=== PATIENT | male | born 1955 | race Caucasian/White ===

== ENCOUNTER 2019-08-29 14:07 | Emergency (ER) | payer MEDICAID ==
[~2019-08-29] VITALS: Ht 170.2 cm; Wt 77.1 kg
[2019-08-29] MEDS ORDERED: IBUP600 PO (15:38)
[2019-08-29] MEDS ORDERED: Norco 5-325 Ta1 EACH PO (15:38)
[2019-08-29] MEDS ORDERED: CYCL10 PO (15:38)
== END 2019-08-29 15:46 | disposition home or self-care (01) ==
LOC: ER 14:07
DX: M54.41 Lumbago with sciatica, right side (principal); F17.200 Nicotine dependence, unspecified, uncomplicated
CPT/HCPCS: 72100; 99283-25; A9270-GY

== ENCOUNTER 2021-01-23 12:13 | Day surgery (SDC) | payer OTHER ==
[~2021-01-23] VITALS: Ht 170.2 cm; Wt 80.4 kg
[~2021-01-23 12:13] MED LIST: CYCL10 PO; IBUP600 PO; IBUP800 PO; Norco 5-325 Ta1 EACH PO
--- NOTE | 2021-01-23 14:07 | NUR ---
01/23/21 1407 Leeann Bueno 11ML NACL INJECTION USED FOR POLYP REMOVALS.
[2021-05-20] MEDS ORDERED: Vancomycin1 GM/2501 IV (12:10)
[2021-05-20] MEDS ORDERED: SULTRIDS PO (12:12)
[2021-05-20] MEDS ORDERED: HYDR1TAB94 PO (12:12)
== END 2021-01-23 14:37 | disposition home or self-care (01) ==
LOC: ORSCSDS 12:13
PROVIDERS: Internal Medicine Gastroenterology
PROC: 0DBC8ZX Excision of Ileocecal Valve, Via Natural or Artificial Opening Endoscopic, Diagnostic (ICD-10-PCS; principal; 2021-01-23 14:30)
PROC: 0DBN8ZX Excision of Sigmoid Colon, Via Natural or Artificial Opening Endoscopic, Diagnostic (ICD-10-PCS; principal; 2021-01-23 14:30)
PROC: 0DBL8ZX Excision of Transverse Colon, Via Natural or Artificial Opening Endoscopic, Diagnostic (ICD-10-PCS; principal; 2021-01-23 14:30)
PROC: 0DBP8ZX Excision of Rectum, Via Natural or Artificial Opening Endoscopic, Diagnostic (ICD-10-PCS; principal; 2021-01-23 14:30)
DX: Z12.11 Encounter for screening for malignant neoplasm of colon (principal); D12.0 Benign neoplasm of cecum; D12.3 Benign neoplasm of transverse colon; D12.5 Benign neoplasm of sigmoid colon; K62.1 Rectal polyp; K57.30 Diverticulosis of large intestine without perforation or abscess without bleeding; K64.8 Other hemorrhoids
CPT/HCPCS: 88305; J2704; J7120

== ENCOUNTER 2021-04-28 23:00 | Emergency (ER) | payer OTHER ==
[~2021-04-28] VITALS: Ht 170.2 cm; Wt 81.7 kg
[2021-04-29 01:25] LABS: BASOPHILS ABSOLUTE AUTO 0.06 K/mm3 (0.00-0.23); BASOPHILS PERCENT AUTO 1 % (0-2); EOSINOPHILS ABSOLUTE AUTO 0.11 K/mm3 (0.00-0.68); EOSINOPHILS PERCENT AUTO 1 % (0-6); Hematocrit 40.6 % (37.0-53.0); Hemoglobin 14.2 g/dL (13.5-17.5); IMMATURE GRAN ABSOLUTE AUTO 0.06 K/mm3 (0.00-0.10); IMMATURE GRAN PERCENT AUTO 1 % (0-1); LYMPHOCYTES ABSOLUTE AUTO 1.29 K/mm3 (0.84-5.20); LYMPHOCYTES PERCENT AUTO 10 % (21-46); MONOCYTES PERCENT AUTO 8 % (4-13); Mean Corpuscular HGB 31.9 pg (26.0-34.0); Mean Corpuscular Volume 91 fL (80-100); NEUTROPHILS ABSOLUTE AUTO 10.39 K/mm3 (1.96-9.15); NEUTROPHILS PERCENT AUTO 80 % (41-73); Platelet Count 317 K/mm3 (150-400); RDW Coefficient Variation 13.9 % (11.7-14.2); RDW Standard Deviation 46.9 fL (35.1-46.3); Red Blood Cell Count 4.45 M/mm3 (4.30-5.90); White Blood Cell Count 12.91 K/mm3 (4.00-11.30)
[2021-04-29 01:37] LABS: Alanine Aminotransfer (ALT/SGP 25 U/L (12-78); Albumin, Blood 3.6 g/dL (3.4-5.0); Albumin/Globulin Ratio 0.9 (0.8-1.8); Alk Phos 122 U/L (50-136); Anion Gap 7 mmol/L (6-16); Aspartate Aminotrans (AST/SGOT 16 U/L (12-37); Bilirubin, Total 0.4 mg/dL (0.1-1.0); Blood Urea Nitrogen 16 mg/dL (8-24); Bun/Creatinine Ratio 16.6 (12.0-20.0); CO2, Blood 24 mmol/L (21-32); Calcium, Blood 8.7 mg/dL (8.5-10.1); Chloride, Blood 108 mmol/L (98-108); Creatinine, Blood 0.96 mg/dL (0.60-1.20); Globulin, Blood 3.9 g/dL (2.2-4.0); Glomerular Filtration Rate >60 (60-); Glucose, Blood 154 mg/dL (70-99); Potassium, Blood 3.5 mmol/L (3.5-5.5); Sodium, Blood 139 mmol/L (136-145); Total Protein, Blood 7.5 g/dL (6.4-8.2)
[2021-05-20] MEDS ORDERED: Vancomycin1 GM/2501 IV (12:10)
[2021-05-20] MEDS ORDERED: SULTRIDS PO (12:12)
[2021-05-20] MEDS ORDERED: HYDR1TAB94 PO (12:12)
== END 2021-04-29 04:24 | disposition home or self-care (01) ==
LOC: ER 23:00
PROVIDERS: Emergency Medicine
DX: G89.18 Other acute postprocedural pain (principal); Z87.891 Personal history of nicotine dependence
CPT/HCPCS: 36415; 73201; 80053; 85025; 86140; 96374; 96375; 99283-25; J1170; J1885; J2405; J3010; Q9967

== ENCOUNTER 2021-05-06 08:22 | Emergency (ER) | payer OTHER ==
[~2021-05-06] VITALS: Ht 170.2 cm; Wt 79.4 kg
[2021-05-06] MEDS ORDERED: IBUP600 PO (08:33)
[2021-05-06] MEDS ORDERED: CEFP200 PO (08:33)
[2021-05-20] MEDS ORDERED: Vancomycin1 GM/2501 IV (12:10)
[2021-05-20] MEDS ORDERED: SULTRIDS PO (12:12)
[2021-05-20] MEDS ORDERED: HYDR1TAB94 PO (12:12)
== END 2021-05-06 09:02 | disposition home or self-care (01) ==
LOC: ER 08:22
DX: G89.18 Other acute postprocedural pain (principal); M79.642 Pain in left hand; Z87.891 Personal history of nicotine dependence
CPT/HCPCS: 99283-25

== ENCOUNTER 2021-05-06 16:31 | Inpatient (IN) | payer OTHER ==
[~2021-05-06] VITALS: Ht 170.2 cm; Wt 74.9 kg
[~2021-05-06 16:31] MED LIST changes: +CEFP200 PO
[2021-05-06 17:51] LABS: BASOPHILS ABSOLUTE AUTO 0.02 K/mm3 (0.00-0.23); BASOPHILS PERCENT AUTO 0 % (0-2); EOSINOPHILS ABSOLUTE AUTO 0.11 K/mm3 (0.00-0.68); EOSINOPHILS PERCENT AUTO 1 % (0-6); Hematocrit 37.9 % (37.0-53.0); Hemoglobin 13.5 g/dL (13.5-17.5); IMMATURE GRAN ABSOLUTE AUTO 0.11 K/mm3 (0.00-0.10); IMMATURE GRAN PERCENT AUTO 1 % (0-1); LYMPHOCYTES ABSOLUTE AUTO 2.94 K/mm3 (0.84-5.20); LYMPHOCYTES PERCENT AUTO 26 % (21-46); MONOCYTES ABSOLUTE AUTO 1.06 K/mm3 (0.16-1.47); MONOCYTES PERCENT AUTO 9 % (4-13); Mean Corpuscular HGB 32.1 pg (26.0-34.0); Mean Corpuscular HGB Conc 35.6 g/dL (31.5-36.5); Mean Corpuscular Volume 90 fL (80-100); Mean Platelet Volume 9.6 fL (9.1-12.4); NEUTROPHILS ABSOLUTE AUTO 6.98 K/mm3 (1.96-9.15); NEUTROPHILS PERCENT AUTO 62 % (41-73); Platelet Count 416 K/mm3 (150-400); RDW Coefficient Variation 13.6 % (11.7-14.2); RDW Standard Deviation 45.3 fL (35.1-46.3); White Blood Cell Count 11.22 K/mm3 (4.00-11.30)
[2021-05-06 18:06] LABS: Alanine Aminotransfer (ALT/SGP 53 U/L (12-78); Albumin, Blood 2.9 g/dL (3.4-5.0); Albumin/Globulin Ratio 0.7 (0.8-1.8); Alk Phos 108 U/L (50-136); Anion Gap 4 mmol/L (6-16); Aspartate Aminotrans (AST/SGOT 26 U/L (12-37); Bilirubin, Total 0.2 mg/dL (0.1-1.0); Blood Urea Nitrogen 20 mg/dL (8-24); Bun/Creatinine Ratio 24.8 (12.0-20.0); CO2, Blood 30 mmol/L (21-32); Calcium, Blood 8.2 mg/dL (8.5-10.1); Chloride, Blood 105 mmol/L (98-108); Creatinine, Blood 0.81 mg/dL (0.60-1.20); Globulin, Blood 3.9 g/dL (2.2-4.0); Glomerular Filtration Rate >60 (60-); Glucose, Blood 96 mg/dL (70-99); Potassium, Blood 3.3 mmol/L (3.5-5.5); Sodium, Blood 139 mmol/L (136-145); Total Protein, Blood 6.8 g/dL (6.4-8.2)
[2021-05-06 18:35] LABS: SARS-Cov-2 (COVID-19) PCR, MMC NEGATIVE (NEGATIVE)
--- NOTE | 2021-05-06 19:25 | NUR ---
DIRECT ADMIT: PT TO UNIT AT ABOUT 1650. VSS, A/O. L HAND IS SWOLLEN AND WRAPED IN DEEPA. PT CAN WIGGLE FINGERS, REPORTS NUMBNESS. CAP REFILL LESS THAN 3 SEC. PT REPORTS PAIN MANAGABLE AT THIS TIME. ARM ELEVATED ON PILLOWS. PRE OP ORDERS FAXED TO PHARMACY AND ORDERS ENTERED IN TO COMPUTER. IV STARTED AND LABS DRAWN. PT GIVEN GOWN AND EDUCATED ON PRE OP PROCESS, ORIENTED TO ROOM, CALL LIGHT. PT NPO. DR. LIZAMA IN ROOM AT ABOUT 1720. COVID TEST SENT AT ABOUT 1730. PT AT BEDSIDE. WILL CTM
--- NOTE | 2021-05-06 19:30 | NUR ---
SURGERY: PT TO OR AT ABOUT 1845, REPORT PASSED TO ALISA FOWLER RN.
--- NOTE | 2021-05-06 19:31 | NUR ---
05/06/211930 Murphy Rod PT ON SCHEDULED ZOSYN AND RECIEVED PRIOR TO ARRIVAL TO OR.
--- NOTE | 2021-05-06 22:54 | NUR ---
ICU RECOVERY PT ARRIVED TO ICU AT 2119. PT ALERT/ORIENTED BUT DROWSY AND C/O PAIN TO LT HAND. PRN FENTANYL AVAILABLE AND GIVEN SEVERAL TIMES, SEE EMAR. SPO2 >93% ON RA. HR 60-80'S. SBP 170-180'S. PT ALBE TO MINMALLY MOVE THUMB AND FIRST TWO DIGITS OF LT HAND AND HAD SENSATION TO ALL 5 FINGERS. TEMP 97.2. REPORT CALLED TO SURGICAL NURSE MALCOLM AT 2209 FOLLOWED BY TRANSPORT TO SUGICAL FLOOR.
--- NOTE | 2021-05-07 05:59 | NUR ---
SHIFT SUMMARY POD1 L WRIST I&D, A/O X4 THOUGH PT WAS GROGGY T/O MOST OF THE SHIFT AFTER COMING BACK FROM ICU RECOVERY, TOLERATING PO, VOIDING, PASSING FLATUS. C/O SEVERE PAIN PRIOR TO NEXT AVAILABLE PAIN MEDICATION DOSE, PT REPORTS THAT THE MEDICATION HE IS RECEIVING IS BARELY TOUCHING HIS PAIN EVEN THOUGH HE IS FALLING ASLEEP AND SNORING WITHIN A FEW MINUTES OF MEDICATION ADMINISTRATION. LAST 2 DOSES OF PAIN MEDICATIONS WERE GIVEN A LITTLE EARLY FOR PATIENT COMFORT AND A CALL WAS PLACED TO THE SURGEON TO SEE ABOUT ADJUSTING THE CURRENT PAIN MEDICATION ORDER, WAITING CALL BACK AT THIS TIME. JUST PRIOR TO LAST PAIN MEDICATION ADMINISTRATION PATIENT WAS CALLING OUT AND YELLING AT STAFF DESPITE TELLING HIM WE WERE WORKING ON GETTING SOMETHING TO BETTER MANAGE HIS PAIN. PATIENT CURRENTLY SLEEPING AND SNORING AND IS ABLE TO WAKE TO VERBAL STIMULI AFTER FALLING ASLEEP AFTER RECEIVING PAIN MEDICATION. NO ACUTE EVENTS THIS SHIFT, CALL LIGHT IN REACH, WILL CTM AND REPORT TO DAY RN
--- NOTE | 2021-05-07 09:59 | NUR ---
PT CALLED FOR PAIN MEDICATION AT 0735, MEDICATION GIVEN AT 0740. OFFERED PT ICE FOR L HAND AND AN EXTRA PILLOW TO ELEVATE L ARM, PT REFUSED. SHORTLY AFTER RECEIVING 1 MG DILAUDID, PT WAS ASLEEP, SP02 94% ON RA, RR 20. WILL CTM.
[2021-05-07 17:13] LABS: BASOPHILS ABSOLUTE AUTO 0.02 K/mm3 (0.00-0.23); BASOPHILS PERCENT AUTO 0 % (0-2); EOSINOPHILS ABSOLUTE AUTO 0.16 K/mm3 (0.00-0.68); EOSINOPHILS PERCENT AUTO 1 % (0-6); Hematocrit 40.9 % (37.0-53.0); Hemoglobin 14.3 g/dL (13.5-17.5); IMMATURE GRAN PERCENT AUTO 1 % (0-1); LYMPHOCYTES ABSOLUTE AUTO 2.13 K/mm3 (0.84-5.20); LYMPHOCYTES PERCENT AUTO 18 % (21-46); MONOCYTES ABSOLUTE AUTO 1.06 K/mm3 (0.16-1.47); MONOCYTES PERCENT AUTO 9 % (4-13); Mean Corpuscular HGB 32.1 pg (26.0-34.0); Mean Corpuscular Volume 92 fL (80-100); Mean Platelet Volume 9.6 fL (9.1-12.4); NEUTROPHILS PERCENT AUTO 72 % (41-73); Platelet Count 368 K/mm3 (150-400); RDW Coefficient Variation 13.8 % (11.7-14.2); RDW Standard Deviation 46.9 fL (35.1-46.3); Red Blood Cell Count 4.45 M/mm3 (4.30-5.90); White Blood Cell Count 12.17 K/mm3 (4.00-11.30)
[2021-05-07 17:35] LABS: Alanine Aminotransfer (ALT/SGP 37 U/L (12-78); Albumin, Blood 2.6 g/dL (3.4-5.0); Albumin/Globulin Ratio 0.6 (0.8-1.8); Alk Phos 104 U/L (50-136); Anion Gap 6 mmol/L (6-16); Aspartate Aminotrans (AST/SGOT 16 U/L (12-37); Bilirubin, Total 0.5 mg/dL (0.1-1.0); Blood Urea Nitrogen 15 mg/dL (8-24); Bun/Creatinine Ratio 16.6 (12.0-20.0); CO2, Blood 29 mmol/L (21-32); Calcium, Blood 8.3 mg/dL (8.5-10.1); Chloride, Blood 101 mmol/L (98-108); Globulin, Blood 4.1 g/dL (2.2-4.0); Glomerular Filtration Rate >60 (60-); Glucose, Blood 112 mg/dL (70-99); Potassium, Blood 3.6 mmol/L (3.5-5.5); Sodium, Blood 136 mmol/L (136-145); Total Protein, Blood 6.7 g/dL (6.4-8.2)
--- NOTE | 2021-05-07 18:30 | NUR ---
SUMMARY: PT IS POD1 I&D L WRIST. DROWSY AND OREINTED TODAY. PT SLEPT OFF AND ON ALL DAY, EASILY AWAKENED. PT REPORTS PAIN WELL MANAGED TONIGHT WITH 2 ROXICODONE. CSM INTACT TO L ARM, ARM ELEVATED TODAY, DRESSING WNL. PT DENIED NEED FOR ICE PACK. PT UP WITH SBA TO VOID SEVERAL TIMES AND SAT IN RECLINER. NOTED HTN TONIGHT PT ASYPTOMATIC, AND DR. LIZAMA MADE AWARE, SEE NEW ORDERS FOR HOSPITALIST CONSULT, DR. MOLINA NOTIFIED. LOSARTIN GIVEN, AND PAIN MEDICATION, WILL CTM. PT SLEEPING AND COMFORTABLE AT THIS TIME. CONSULT FOR DR. GRAVES ALSO CALLED TONIGHT AND MESSAGE LEFT. WILL CTM AND REPORT TO NOC RN.
--- NOTE | 2021-05-08 04:17 | NUR ---
SHIFT SUMMARY NO ACUTE CHANGES THIS SHIFT. DRESSING TO L HAND REMAINS CDI. FINGERS WITH MINIMAL SWELLING. PT ABLE TO SLOWLY WIGGLE FINGERS. REPORTS BASELINE N/T. CAP REFILL <3. ELEVATED ON PILLOWS. L HAND NWB. PT INDEP TO RESTROOM. 2 PAIN PILLS PER ORDERS FOR PAIN. PT HAS RESTED WELL T/O SHIFT. CALL LIGHT WITHIN REACH.
[2021-05-08 08:54] LABS: Anion Gap 4 mmol/L (6-16); Blood Urea Nitrogen 15 mg/dL (8-24); Bun/Creatinine Ratio 17.4 (12.0-20.0); CO2, Blood 30 mmol/L (21-32); Calcium, Blood 8.2 mg/dL (8.5-10.1); Chloride, Blood 102 mmol/L (98-108); Creatinine, Blood 0.86 mg/dL (0.60-1.20); Glomerular Filtration Rate >60 (60-); Glucose, Blood 107 mg/dL (70-99); Potassium, Blood 4.1 mmol/L (3.5-5.5); Sodium, Blood 136 mmol/L (136-145); Vancomycin, Trough 6.3 ug/mL (5.0-10.0)
--- NOTE | 2021-05-08 12:35 | NUR ---
[facility]
--- NOTE | 2021-05-08 13:38 | NUR ---
05/08/21 1338 Tonie Bonds TOURNIQUET INFLATED BY ANESTHESIA AT [id number] AND DEFLATED AT 1331 250 MMHG. 18 " TOURNIQUET PADDED.
--- NOTE | 2021-05-08 14:55 | NUR ---
POST OP PT ARRIVES VIA GOURNEY & SBA STANDS & TRANSFERS TO HOSPITAL BED. L HAND IN DEEPA WRAP W/ GAUZE UNDERNEATH. VSS. L HAND ELEVATED ON 2 PILLOWS. CAP REFIL WNL. PT STATES THROBBING IS GONE. CLEAR LQS GIVEN. WILL ADVANBCE DIET TOLERATED.
[2021-05-08 16:47] LABS: BASOPHILS ABSOLUTE AUTO 0.03 K/mm3 (0.00-0.23); BASOPHILS PERCENT AUTO 0 % (0-2); EOSINOPHILS ABSOLUTE AUTO 0.04 K/mm3 (0.00-0.68); EOSINOPHILS PERCENT AUTO 0 % (0-6); Hematocrit 43.9 % (37.0-53.0); IMMATURE GRAN ABSOLUTE AUTO 0.14 K/mm3 (0.00-0.10); IMMATURE GRAN PERCENT AUTO 1 % (0-1); LYMPHOCYTES ABSOLUTE AUTO 0.79 K/mm3 (0.84-5.20); LYMPHOCYTES PERCENT AUTO 4 % (21-46); MONOCYTES ABSOLUTE AUTO 0.19 K/mm3 (0.16-1.47); MONOCYTES PERCENT AUTO 1 % (4-13); Mean Corpuscular HGB 32.1 pg (26.0-34.0); Mean Corpuscular HGB Conc 34.2 g/dL (31.5-36.5); Mean Corpuscular Volume 94 fL (80-100); Mean Platelet Volume 9.7 fL (9.1-12.4); NEUTROPHILS ABSOLUTE AUTO 16.91 K/mm3 (1.96-9.15); NEUTROPHILS PERCENT AUTO 93 % (41-73); Platelet Count 363 K/mm3 (150-400); RDW Coefficient Variation 13.7 % (11.7-14.2); RDW Standard Deviation 47.3 fL (35.1-46.3); Red Blood Cell Count 4.67 M/mm3 (4.30-5.90)
[2021-05-08 17:13] LABS: Alanine Aminotransfer (ALT/SGP 31 U/L (12-78); Albumin, Blood 2.6 g/dL (3.4-5.0); Albumin/Globulin Ratio 0.6 (0.8-1.8); Alk Phos 98 U/L (50-136); Anion Gap 6 mmol/L (6-16); Aspartate Aminotrans (AST/SGOT 15 U/L (12-37); Bilirubin, Total 0.6 mg/dL (0.1-1.0); Blood Urea Nitrogen 15 mg/dL (8-24); Bun/Creatinine Ratio 16.5 (12.0-20.0); CO2, Blood 30 mmol/L (21-32); Calcium, Blood 8.4 mg/dL (8.5-10.1); Chloride, Blood 98 mmol/L (98-108); Creatinine, Blood 0.91 mg/dL (0.60-1.20); Globulin, Blood 4.3 g/dL (2.2-4.0); Glomerular Filtration Rate >60 (60-); Glucose, Blood 213 mg/dL (70-99); Potassium, Blood 4.1 mmol/L (3.5-5.5); Sodium, Blood 134 mmol/L (136-145); Total Protein, Blood 6.9 g/dL (6.4-8.2)
--- NOTE | 2021-05-08 19:00 | NUR ---
RECEIVED REPORT AND ASSUMED CARE OF PT. HE IS SITTING UP IN BED WITH HIS LEFT ARM ELEVATED. HE REPORTS THAT HIS PAIN IS STARTING TO RAMP UP, DISCUSSED PAIN MANAGEMENT AND NEXT SCHEDULED DOSE. WILL MEDICATE PER MAR. HE IS RECEPTIVE TO COLD THERAPY.
--- NOTE | 2021-05-08 20:45 | NUR ---
PT REQUESTS TO BE AWOKEN FOR HIS NEXT DOSE OF PAIN MEDICATION, BUT WANTS TO BE ALLOWED TO SLEEP AFTER THAT. HE STATES HE WILL ASK FOR THE PAIN MEDICATION WHEN HE IS READY FOR IT.
[2021-05-09 04:46] LABS: BASOPHILS ABSOLUTE AUTO 0.03 K/mm3 (0.00-0.23); BASOPHILS PERCENT AUTO 0 % (0-2); EOSINOPHILS ABSOLUTE AUTO 0.01 K/mm3 (0.00-0.68); EOSINOPHILS PERCENT AUTO 0 % (0-6); Hematocrit 40.1 % (37.0-53.0); IMMATURE GRAN ABSOLUTE AUTO 0.11 K/mm3 (0.00-0.10); IMMATURE GRAN PERCENT AUTO 1 % (0-1); LYMPHOCYTES ABSOLUTE AUTO 1.33 K/mm3 (0.84-5.20); LYMPHOCYTES PERCENT AUTO 8 % (21-46); MONOCYTES ABSOLUTE AUTO 0.92 K/mm3 (0.16-1.47); MONOCYTES PERCENT AUTO 6 % (4-13); Mean Corpuscular HGB Conc 34.9 g/dL (31.5-36.5); Mean Corpuscular Volume 92 fL (80-100); Mean Platelet Volume 9.9 fL (9.1-12.4); NEUTROPHILS ABSOLUTE AUTO 13.48 K/mm3 (1.96-9.15); NEUTROPHILS PERCENT AUTO 85 % (41-73); Platelet Count 341 K/mm3 (150-400); RDW Coefficient Variation 13.2 % (11.7-14.2); RDW Standard Deviation 44.8 fL (35.1-46.3); Red Blood Cell Count 4.37 M/mm3 (4.30-5.90); White Blood Cell Count 15.88 K/mm3 (4.00-11.30)
[2021-05-09 05:03] LABS: Albumin, Blood 2.3 g/dL (3.4-5.0); Anion Gap 5 mmol/L (6-16); Blood Urea Nitrogen 25 mg/dL (8-24); Bun/Creatinine Ratio 27.4 (12.0-20.0); CO2, Blood 27 mmol/L (21-32); Chloride, Blood 103 mmol/L (98-108); Creatinine, Blood 0.91 mg/dL (0.60-1.20); Glomerular Filtration Rate >60 (60-); Glucose, Blood 128 mg/dL (70-99); Potassium, Blood 4.4 mmol/L (3.5-5.5); Sodium, Blood 135 mmol/L (136-145)
--- NOTE | 2021-05-09 05:44 | NUR ---
SHIFT SUMMARY: KENAN IS A&OX4. VSS, NO ACUTE EVENTS OVERNIGHT. DEEPA WRAP OVER GAUZE TO LUE C/D&I. HE IS TOLERATING PO INTAKE WELL, IV PATENT, ONE PERSON ASSIST TO THE BATHROOM FOR LINE/CORD MANAGEMENT. HE HAS NOT EXHIBITED ANY SIGNS/SYMPTOMS OF WITHDRAWAL THIS SHIFT, USES THE CALL LIGHT APPROPRIATELY. HE IS LYING IN BED WITH THE CALL LIGHT IN REACH. WILL REPORT TO DAY SHIFT RN.
--- NOTE | 2021-05-09 19:27 | NUR ---
SHIFT SUMMARY PATIENT ALERT WHEN AWAKE AND ORIENTED THROUGHOUT SHIFT. TOLERATING REGULAR DIET AND FLUIDS. ROUTINE IV ABX. VOIDING WELL. LEFT HAND IN CAST AND DEEPA WRAP. DR GRAVES CONSULTED AND ORDERED IV ANTIBIOTICS. PAIN CONTROLLED WITH PO CRISTINA MEDS. PLAN TO DISCHARGE HOME TONIGHT 05/09 AND PATIENT IS SCHEDULED AT [facility]ION [facility] 05/10 AT 0830. REPORT GIVEN TO ADVERTISING ANALYST RN.
--- NOTE | 2021-05-09 19:43 | NUR ---
PT REQUESTED TO BE TAKEN OUTSIDE TO WAIT FOR HIS TO PICK HIM UP. DISCHARGE COMPLETE PER DAY SHIFT. PT ABLE TO STAND, WALK, AND CARRY HIS BELONGINGS WITH HIS RIGHT ARM INDEPENDENTLY. PT TRANSPORTED TO ER ENTRANCE WHERE HE CHOSE TO SIT ON THE BENCH OUTSIDE THE DOORS.
[2021-05-10] MEDS ORDERED: CEFTRIAXONE2 G1 IV (09:44)
[2021-05-20] MEDS ORDERED: Vancomycin1 GM/2501 IV (12:10)
[2021-05-20] MEDS ORDERED: HYDR1TAB94 PO (12:12)
[2021-05-20] MEDS ORDERED: SULTRIDS PO (12:12)
== END 2021-05-09 19:30 | disposition home or self-care (01) | DRG 857 ==
LOC: SURS 16:31
PROVIDERS: Family Medicine; Internal Medicine; Physician Assistant Surgical; ADMIT Orthopaedic Surgery
PROC: 0LN80ZZ Release Left Hand Tendon, Open Approach (ICD-10-PCS; 2021-05-06)
PROC: 01N50ZZ Release Median Nerve, Open Approach (ICD-10-PCS; 2021-05-06)
PROC: 0KBD0ZZ Excision of Left Hand Muscle, Open Approach (ICD-10-PCS; principal; 2021-05-06 17:00)
DX: T81.41XA Infection following a procedure, superficial incisional surgical site, initial encounter (principal); E87.1 Hypo-osmolality and hyponatremia; R73.9 Hyperglycemia, unspecified; A49.01 Methicillin susceptible Staphylococcus aureus infection, unspecified site; Z20.822 Contact with and (suspected) exposure to COVID-19; D72.829 Elevated white blood cell count, unspecified; M65.142 Other infective (teno)synovitis, left hand; I10 Essential (primary) hypertension; Z87.891 Personal history of nicotine dependence; Y83.8 Other surgical procedures as the cause of abnormal reaction of the patient, or of later complication, without mention of misadventure at the time of the procedure
CPT/HCPCS: 36415; 80048; 80053; 80069; 80202; 83036; 85025; 85651; 86140; 87070; 87075; 87077; 87186; 87205; 97110; 97166; A9270; J0330; J0696; J1100; J1170; J1885; J2250; J2370; J2405; J2543; J2704; J3010; J3370; J7040; J7120; U0004

== ENCOUNTER 2021-05-10 08:17 | Day surgery (SDC) | payer OTHER ==
[~2021-05-10] VITALS: Wt 74.9 kg
[2021-05-10] MEDS ORDERED: CEFTRIAXONE2 G1 IV (09:44)
== END 2021-05-10 09:41 | disposition home or self-care (01) ==
LOC: ATC 08:17
DX: T81.41XA Infection following a procedure, superficial incisional surgical site, initial encounter (principal); Y83.8 Other surgical procedures as the cause of abnormal reaction of the patient, or of later complication, without mention of misadventure at the time of the procedure; Z87.891 Personal history of nicotine dependence
CPT/HCPCS: 96365; C1751; J0696; J2001

== ENCOUNTER 2021-05-13 00:08 | Day surgery (SDC) | payer OTHER ==
[~2021-05-13 00:08] MED LIST changes: +CEFTRIAXONE2 G1 IV
== END 2021-05-13 09:01 | disposition home or self-care (01) ==
LOC: ATC 00:08
DX: T81.49XA Infection following a procedure, other surgical site, initial encounter (principal); Y83.8 Other surgical procedures as the cause of abnormal reaction of the patient, or of later complication, without mention of misadventure at the time of the procedure; Z87.891 Personal history of nicotine dependence
CPT/HCPCS: J0696

== ENCOUNTER 2021-05-14 00:37 | Day surgery (SDC) | payer OTHER | END 2021-05-14 08:55 | disposition home or self-care (01) | LOC: ATC 00:37 | DX: T81.49XA Infection following a procedure, other surgical site, initial encounter (principal); B99.9 Unspecified infectious disease; Y83.8 Other surgical procedures as the cause of abnormal reaction of the patient, or of later complication, without mention of misadventure at the time of the procedure; Z87.891 Personal history of nicotine dependence | CPT/HCPCS: J0696 ==

== ENCOUNTER 2021-05-15 04:01 | Day surgery (SDC) | payer OTHER | END 2021-05-15 09:30 | disposition home or self-care (01) | LOC: ATC 04:01 | DX: T81.49XA Infection following a procedure, other surgical site, initial encounter (principal); Z87.891 Personal history of nicotine dependence | CPT/HCPCS: 96365; J0696 ==

== ENCOUNTER 2021-05-16 00:55 | Day surgery (SDC) | payer OTHER | END 2021-05-16 15:10 | disposition home or self-care (01) | LOC: ATC 00:55 | DX: T81.41XA Infection following a procedure, superficial incisional surgical site, initial encounter (principal); Y83.8 Other surgical procedures as the cause of abnormal reaction of the patient, or of later complication, without mention of misadventure at the time of the procedure; Z87.891 Personal history of nicotine dependence | CPT/HCPCS: 96365; J0696 ==

== ENCOUNTER 2021-05-17 01:10 | Day surgery (SDC) | payer OTHER | END 2021-05-17 09:50 | disposition home or self-care (01) | LOC: ATC 01:10 | DX: T81.49XA Infection following a procedure, other surgical site, initial encounter (principal); B99.9 Unspecified infectious disease; Y83.8 Other surgical procedures as the cause of abnormal reaction of the patient, or of later complication, without mention of misadventure at the time of the procedure; Z87.891 Personal history of nicotine dependence | CPT/HCPCS: J0696 ==

== ENCOUNTER 2021-05-18 07:11 | Day surgery (SDC) | payer OTHER ==
--- NOTE | 2021-05-18 08:33 | NUR ---
PT ARRIVED AT 0710 FOR 08 INFUSION APPOINTMENT. PT PLACED IN ROOM 228 PT IS GOING TO HAVE AN I&D THIS AM AFTER INFUSION. INFUSION COMPLETED AT 0825. WILLY NEGRON OVERSEEING PT FOR I&D. DR REYES IN ROOM AT 0825. PLAN AT THIS POINT IS THAT PT WILL BE AN INPATIENT THROUGH THE WEEKEND. JAMIL AGUILERA TO KEEP INFUSION CLINIC POSTED ON PLAN FOR ABX THERAPY POST I&D
== END 2021-05-18 08:25 | disposition home or self-care (01) ==
LOC: ATC 07:11
DX: T81.49XD Infection following a procedure, other surgical site, subsequent encounter (principal); Z87.891 Personal history of nicotine dependence
CPT/HCPCS: J0696

== ENCOUNTER 2021-05-18 07:20 | Inpatient (IN) | payer OTHER ==
[~2021-05-18] VITALS: Ht 170.2 cm; Wt 75.0 kg
[2021-05-18 08:56] LABS: BASOPHILS ABSOLUTE AUTO 0.06 K/mm3 (0.00-0.23); BASOPHILS PERCENT AUTO 1 % (0-2); EOSINOPHILS ABSOLUTE AUTO 0.21 K/mm3 (0.00-0.68); EOSINOPHILS PERCENT AUTO 3 % (0-6); Hematocrit 34.1 % (37.0-53.0); Hemoglobin 11.7 g/dL (13.5-17.5); IMMATURE GRAN ABSOLUTE AUTO 0.02 K/mm3 (0.00-0.10); IMMATURE GRAN PERCENT AUTO 0 % (0-1); LYMPHOCYTES ABSOLUTE AUTO 1.41 K/mm3 (0.84-5.20); LYMPHOCYTES PERCENT AUTO 20 % (21-46); MONOCYTES ABSOLUTE AUTO 0.74 K/mm3 (0.16-1.47); MONOCYTES PERCENT AUTO 10 % (4-13); Mean Corpuscular HGB 32.1 pg (26.0-34.0); Mean Corpuscular HGB Conc 34.3 g/dL (31.5-36.5); Mean Corpuscular Volume 94 fL (80-100); Mean Platelet Volume 9.6 fL (9.1-12.4); NEUTROPHILS ABSOLUTE AUTO 4.71 K/mm3 (1.96-9.15); NEUTROPHILS PERCENT AUTO 66 % (41-73); Platelet Count 377 K/mm3 (150-400); RDW Coefficient Variation 13.5 % (11.7-14.2); RDW Standard Deviation 46.5 fL (35.1-46.3); Red Blood Cell Count 3.64 M/mm3 (4.30-5.90); White Blood Cell Count 7.15 K/mm3 (4.00-11.30)
[2021-05-18 09:16] LABS: Anion Gap 4 mmol/L (6-16); Blood Urea Nitrogen 17 mg/dL (8-24); CO2, Blood 28 mmol/L (21-32); Calcium, Blood 8.4 mg/dL (8.5-10.1); Chloride, Blood 109 mmol/L (98-108); Creatinine, Blood 0.94 mg/dL (0.60-1.20); Glomerular Filtration Rate >60 (60-); Glucose, Blood 93 mg/dL (70-99); Sodium, Blood 141 mmol/L (136-145)
[2021-05-18 09:27] LABS: SARS-Cov-2 (COVID-19) PCR, MMC NEGATIVE (NEGATIVE)
--- NOTE | 2021-05-18 10:00 | NUR ---
SURGERY: PT TO THE OR AT THIS TIME. SURGICAL PKT COMPLETED. FRANCISCOO SENT WITH RESTAURANT AREA DIRECTOR. PT VOIDED PRIOR TO LEAVING ROOM. WILL CONT TO MONITOR WHEN RETURNS POST OP.
--- NOTE | 2021-05-18 12:25 | NUR ---
POST OP: PT RETURNED TO ROOM POST OP. DEEPA WRAP TO LEFT HAND, CDI. LEFT ARM ELEVATED ON PILLOWS. PT COMPLAINS OF 10/10 PAIN. PT STATES HE IS HUNGRY. JELLO, CRACKERS AND WATER GIVEN. IV INFUSING. VSS. WILL CONT TO MONITOR.
--- NOTE | 2021-05-18 12:27 | NUR ---
PT GLASSES TO ROOM WITH PT
--- NOTE | 2021-05-18 18:55 | NUR ---
RECVD REPORT FROM PREVIOUS SHIFT RN WILLY, PT ASLEEP IN BED, CALL LIGHT WITHIN REACH, BED RAILS UP X 2, BED IN LOWEST POSITION, OPERATIVE LIMB ELEVATED ON PILLOWS
--- NOTE | 2021-05-18 19:09 | NUR ---
PT HAS BEEN STABLE POST OP. LEFT HAND DRESSING CDI. LEFT ARM ELEVATED ON PILLOWS. STILL HAS SIGNIFICANT SWEIING. PT ABX CHANGED THIS SHIFT. IV MAY BE SL WHEN KILO PO. PT KILO DIET WELL. PAIN CONTROLLED WITH PRN MEDS. PT HAS NOT VOIDED YET POST OP. PT AMBULATES INDEP IN ROOM. PAS TO BLE. USES CALL LIGHT APPROPRIATELY. DAVID FOR DC POSSIBLY THURSDAY.
--- NOTE | 2021-05-19 01:51 | NUR ---
PT SLEEPING IN BED, AWAKENED FOR MEDICATION ADMINISTRATION, NOTIFIED IT IS REQUIRED FOR US TO TRANSFER HIS ROOMS. PT AGREED TO THIS CALMLY; TRANSFERRED TO ADJACENT ROOM ON HIS OWN BED, BELONGINGS TRANSFERRED TO ROOM WITH PT.
[2021-05-19 04:03] LABS: BASOPHILS ABSOLUTE AUTO 0.04 K/mm3 (0.00-0.23); BASOPHILS PERCENT AUTO 0 % (0-2); EOSINOPHILS PERCENT AUTO 0 % (0-6); Hematocrit 35.3 % (37.0-53.0); IMMATURE GRAN ABSOLUTE AUTO 0.04 K/mm3 (0.00-0.10); IMMATURE GRAN PERCENT AUTO 0 % (0-1); LYMPHOCYTES ABSOLUTE AUTO 1.31 K/mm3 (0.84-5.20); LYMPHOCYTES PERCENT AUTO 15 % (21-46); MONOCYTES ABSOLUTE AUTO 0.59 K/mm3 (0.16-1.47); MONOCYTES PERCENT AUTO 7 % (4-13); Mean Corpuscular HGB 31.3 pg (26.0-34.0); Mean Corpuscular Volume 92 fL (80-100); Mean Platelet Volume 9.6 fL (9.1-12.4); NEUTROPHILS ABSOLUTE AUTO 6.92 K/mm3 (1.96-9.15); NEUTROPHILS PERCENT AUTO 78 % (41-73); Platelet Count 381 K/mm3 (150-400); RDW Coefficient Variation 13.3 % (11.7-14.2); RDW Standard Deviation 45.5 fL (35.1-46.3); Red Blood Cell Count 3.84 M/mm3 (4.30-5.90)
--- NOTE | 2021-05-19 04:07 | NUR ---
shift summary: vss, no acute changes. pt remained a/o x 4, cooperative. pt has requested nursing staff leave him to sleep as much as possible. lab line draw this am wnl. pt rates pain at 7/10, reassessed at 5/10 but is sleeping deeply, awakens easily. pt voiding, tolerating regular diet, independent in room. operative hand wrapped in bulky gauze/tia dressing c/d/i, fingers with full sensation, warm/dry, capillary refill <3 sec.
--- NOTE | 2021-05-19 04:15 | NUR ---
ASSUMED CARE OF PT AT THIS TIME. REPORT FROM JAMIL BOLES. PT IS CURRENTLY RESTING IN BED WITH CALL LIGHT IN REACH.
[2021-05-19 04:22] LABS: Anion Gap 5 mmol/L (6-16); Blood Urea Nitrogen 19 mg/dL (8-24); Bun/Creatinine Ratio 22.4 (12.0-20.0); CO2, Blood 27 mmol/L (21-32); Calcium, Blood 8.2 mg/dL (8.5-10.1); Chloride, Blood 105 mmol/L (98-108); Creatinine, Blood 0.85 mg/dL (0.60-1.20); Glomerular Filtration Rate >60 (60-); Glucose, Blood 130 mg/dL (70-99); Magnesium, Blood 1.9 mg/dL (1.6-2.4); Sodium, Blood 137 mmol/L (136-145)
--- NOTE | 2021-05-19 09:31 | NUR ---
DRESSING CHANGED BY DR. REYES AT THIS TIME.
--- NOTE | 2021-05-19 17:35 | NUR ---
SHIFT SUMMARY PT IS A/O X4, IND IN ROOM. TOLERATING PO INTAKE AND VOIDING. DRESSING TO L HAND CHANGED TODAY BY DR. REYES. PAIN MANAGED WITH PO PAIN MED PER ORDERS. PT HAS BEEN RESTING IN BED WITH L ARM ELEVATED ON PILLOWS MOST OF THE DAY. NO ACUTE CHANGES T/O THE SHIFT.
--- NOTE | 2021-05-20 05:53 | NUR ---
SHIFT SUMMARY POD#2 I+D LEFT WRIST/HAND. AAOX4. DISCOMFORT CONTROLLED WITH 1 NORCO Q4H. NO NAUSEA/EMESIS. DEEPA WRAP TO LUE C/D/I. MOVES ALL FINGERS WELL, TINGLING TO THUMB POST OP, CAP REFILL BRISK. INDEPENDENT IN ROOM. GOOD PO INTAKE + OUTPUT. PT RESTED WELL T/O NIGHT. NO ACUTE CHANGES THIS NOC SHIFT. PT CURRENTLY RESTING WELL IN BED WITH CALL LIGHT IN REACH.
[2021-05-20 09:30] LABS: Vancomycin, Trough 22.7 ug/mL (5.0-10.0)
[2021-05-20] MEDS ORDERED: Vancomycin1 GM/2501 IV ×2 (12:10)
[2021-05-20] MEDS ORDERED: HYDR1TAB94 PO ×2 (12:12)
[2021-05-20] MEDS ORDERED: SULTRIDS PO ×2 (12:12)
--- NOTE | 2021-05-20 14:45 | NUR ---
DISCHARGE PT RECEIVED LEVAQUIN & VANCO PRIOR TO DC/ APPOINTMENT MADE W/ LEX FOR ANTIBIOTIC THERAPY AT 0830; PT COMITS TO THIS. WOUND CARE SUPPLIES SENT W/ HIM. STATES HIS SISTER PLANS TO COME OVER TO DO WOUND CARE. EDUCATED ON KEEPING DRSG & WOUND CLEAN & ELEVATED. SCRIPTS GIVEN. ESCORTED OUT VIA W/C.
== END 2021-05-20 15:00 | disposition home or self-care (01) | DRG 857 ==
LOC: SURS 07:20
PROVIDERS: Pharmacist; ADMIT Orthopaedic Surgery
PROC: 01N50ZZ Release Median Nerve, Open Approach (ICD-10-PCS; 2021-05-18)
PROC: 0LN80ZZ Release Left Hand Tendon, Open Approach (ICD-10-PCS; 2021-05-18)
PROC: 0L980ZZ Drainage of Left Hand Tendon, Open Approach (ICD-10-PCS; principal; 2021-05-18 09:30)
DX: T81.42XA Infection following a procedure, deep incisional surgical site, initial encounter (principal); L02.512 Cutaneous abscess of left hand; L03.114 Cellulitis of left upper limb; G89.29 Other chronic pain; M54.5 Low back pain; Z60.2 Problems related to living alone; Y83.8 Other surgical procedures as the cause of abnormal reaction of the patient, or of later complication, without mention of misadventure at the time of the procedure; Z87.891 Personal history of nicotine dependence
CPT/HCPCS: 36415; 80048; 80202; 83735; 85025; 85651; 86140; 87070; 87075; 87205; 94760; 96365; 97110; 97165; A9270; J0696; J1100; J1885; J1956; J2405; J2704; J3010; J3370; J7050; U0004

== ENCOUNTER 2021-05-21 04:23 | Day surgery (SDC) | payer OTHER ==
[~2021-05-21 04:23] MED LIST changes: +HYDR1TAB94 PO; +SULTRIDS PO; +Vancomycin1 GM/2501 IV
== END 2021-05-21 16:17 | disposition home or self-care (01) ==
LOC: ATC 04:23
DX: T81.49XA Infection following a procedure, other surgical site, initial encounter (principal); B99.9 Unspecified infectious disease; Y83.8 Other surgical procedures as the cause of abnormal reaction of the patient, or of later complication, without mention of misadventure at the time of the procedure; Z87.891 Personal history of nicotine dependence
CPT/HCPCS: 96365; J3370

== ENCOUNTER 2021-05-22 02:37 | Day surgery (SDC) | payer OTHER ==
[2021-05-23] MEDS ORDERED: DAPTOMYCIN500 MG IV (08:28)
== END 2021-05-22 09:20 | disposition home or self-care (01) ==
LOC: ATC 02:37
DX: T81.49XA Infection following a procedure, other surgical site, initial encounter (principal)
CPT/HCPCS: 96365; J0878

== ENCOUNTER 2021-05-23 01:02 | Day surgery (SDC) | payer OTHER ==
[2021-05-23] MEDS ORDERED: DAPTOMYCIN500 MG IV (08:28)
== END 2021-05-23 09:04 | disposition home or self-care (01) ==
LOC: ATC 01:02
DX: T81.41XA Infection following a procedure, superficial incisional surgical site, initial encounter (principal); Y83.8 Other surgical procedures as the cause of abnormal reaction of the patient, or of later complication, without mention of misadventure at the time of the procedure; Z87.891 Personal history of nicotine dependence
CPT/HCPCS: 96365; J0878

== ENCOUNTER 2021-05-25 08:50 | Day surgery (SDC) | payer OTHER ==
[~2021-05-25 08:50] MED LIST changes: +DAPTOMYCIN500 MG IV
== END 2021-05-25 09:48 | disposition home or self-care (01) ==
LOC: ATC 08:50
DX: T81.41XA Infection following a procedure, superficial incisional surgical site, initial encounter (principal); Y83.8 Other surgical procedures as the cause of abnormal reaction of the patient, or of later complication, without mention of misadventure at the time of the procedure; Z87.891 Personal history of nicotine dependence
CPT/HCPCS: 96365; J0878

== ENCOUNTER 2021-05-30 02:06 | Day surgery (SDC) | payer OTHER | END 2021-05-30 08:41 | disposition home or self-care (01) | LOC: ATC 02:06 | DX: T81.49XA Infection following a procedure, other surgical site, initial encounter (principal); M00.9 Pyogenic arthritis, unspecified; L02.512 Cutaneous abscess of left hand; G56.02 Carpal tunnel syndrome, left upper limb; Z87.891 Personal history of nicotine dependence; Y83.8 Other surgical procedures as the cause of abnormal reaction of the patient, or of later complication, without mention of misadventure at the time of the procedure | CPT/HCPCS: 96365; J0878 ==

== ENCOUNTER 2021-05-31 01:26 | Day surgery (SDC) | payer OTHER | END 2021-05-31 08:48 | disposition home or self-care (01) | LOC: ATC 01:26 | DX: T81.41XA Infection following a procedure, superficial incisional surgical site, initial encounter (principal); Y83.8 Other surgical procedures as the cause of abnormal reaction of the patient, or of later complication, without mention of misadventure at the time of the procedure; Z87.891 Personal history of nicotine dependence | CPT/HCPCS: 96365; J0878 ==

== ENCOUNTER 2021-06-01 07:29 | Day surgery (SDC) | payer OTHER | END 2021-06-01 08:30 | disposition home or self-care (01) | LOC: ATC 07:29 | DX: T81.49XA Infection following a procedure, other surgical site, initial encounter (principal); Y83.8 Other surgical procedures as the cause of abnormal reaction of the patient, or of later complication, without mention of misadventure at the time of the procedure; Z87.891 Personal history of nicotine dependence | CPT/HCPCS: 96365; J0878 ==

== ENCOUNTER 2021-06-02 07:32 | Day surgery (SDC) | payer OTHER | END 2021-06-02 08:29 | disposition home or self-care (01) | LOC: ATC 07:32 | DX: T81.41XD Infection following a procedure, superficial incisional surgical site, subsequent encounter (principal); Z87.891 Personal history of nicotine dependence | CPT/HCPCS: 96365; J0878 ==

== ENCOUNTER 2021-06-03 01:27 | Day surgery (SDC) | payer OTHER | END 2021-06-03 08:04 | disposition home or self-care (01) | LOC: ATC 01:27 | DX: T81.49XA Infection following a procedure, other surgical site, initial encounter (principal); M00.9 Pyogenic arthritis, unspecified; F17.210 Nicotine dependence, cigarettes, uncomplicated; Y83.8 Other surgical procedures as the cause of abnormal reaction of the patient, or of later complication, without mention of misadventure at the time of the procedure | CPT/HCPCS: 96365; J0878 ==

== ENCOUNTER 2021-06-04 04:09 | Day surgery (SDC) | payer OTHER | END 2021-06-04 08:10 | disposition home or self-care (01) | LOC: ATC 04:09 | DX: T81.49XA Infection following a procedure, other surgical site, initial encounter (principal); B99.9 Unspecified infectious disease; F17.210 Nicotine dependence, cigarettes, uncomplicated; Y83.8 Other surgical procedures as the cause of abnormal reaction of the patient, or of later complication, without mention of misadventure at the time of the procedure | CPT/HCPCS: 96365; J0878 ==

== ENCOUNTER 2021-06-05 01:06 | Day surgery (SDC) | payer OTHER | END 2021-06-05 09:03 | disposition home or self-care (01) | LOC: ATC 01:06 | DX: T81.41XA Infection following a procedure, superficial incisional surgical site, initial encounter (principal); M00.9 Pyogenic arthritis, unspecified; Y83.8 Other surgical procedures as the cause of abnormal reaction of the patient, or of later complication, without mention of misadventure at the time of the procedure; F17.210 Nicotine dependence, cigarettes, uncomplicated | CPT/HCPCS: 96365; J0878 ==

== ENCOUNTER 2021-06-06 02:16 | Day surgery (SDC) | payer OTHER | END 2021-06-06 09:21 | disposition home or self-care (01) | LOC: ATC 02:16 | DX: T81.40XA Infection following a procedure, unspecified, initial encounter (principal); M00.9 Pyogenic arthritis, unspecified; Y83.8 Other surgical procedures as the cause of abnormal reaction of the patient, or of later complication, without mention of misadventure at the time of the procedure; F17.210 Nicotine dependence, cigarettes, uncomplicated; Z86.69 Personal history of other diseases of the nervous system and sense organs | CPT/HCPCS: 96365; J0878 ==

== ENCOUNTER 2021-06-07 00:15 | Day surgery (SDC) | payer OTHER | END 2021-06-07 08:28 | disposition home or self-care (01) | LOC: ATC 00:15 | DX: T81.49XA Infection following a procedure, other surgical site, initial encounter (principal); B99.9 Unspecified infectious disease; Y83.8 Other surgical procedures as the cause of abnormal reaction of the patient, or of later complication, without mention of misadventure at the time of the procedure; F17.210 Nicotine dependence, cigarettes, uncomplicated | CPT/HCPCS: 96365; J0878 ==

== ENCOUNTER 2021-06-08 07:32 | Day surgery (SDC) | payer OTHER ==
--- NOTE | 2021-06-08 08:41 | NUR ---
PT ARRIVED WITH BOTH HANDS APPEARING DIRTY. IT APPEARED LIKE A MECHANICS HANDS WITH A BLACK GREASE APPEARANCE. PT STATES HE GOT GORILLA GLUE ON HIM AND COULDN'T GET IT OFF. OUTER NETTING CHANGED FOR POWERGLIDE IT WAS DIRTY WELL.
== END 2021-06-08 09:00 | disposition home or self-care (01) ==
LOC: ATC 07:32
DX: T81.42XD Infection following a procedure, deep incisional surgical site, subsequent encounter (principal); M00.9 Pyogenic arthritis, unspecified; F17.210 Nicotine dependence, cigarettes, uncomplicated
CPT/HCPCS: 96365; J0878

== ENCOUNTER 2021-06-09 07:20 | Day surgery (SDC) | payer OTHER | END 2021-06-09 08:51 | disposition home or self-care (01) | LOC: ATC 07:20 | DX: T81.49XA Infection following a procedure, other surgical site, initial encounter (principal); B99.9 Unspecified infectious disease; F17.210 Nicotine dependence, cigarettes, uncomplicated; Y83.8 Other surgical procedures as the cause of abnormal reaction of the patient, or of later complication, without mention of misadventure at the time of the procedure | CPT/HCPCS: 96365; J0878 ==

== ENCOUNTER 2021-06-10 00:31 | Day surgery (SDC) | payer OTHER | END 2021-06-10 08:30 | disposition home or self-care (01) | LOC: ATC 00:31 | DX: T81.49XA Infection following a procedure, other surgical site, initial encounter (principal); B99.9 Unspecified infectious disease; F17.210 Nicotine dependence, cigarettes, uncomplicated; Y83.8 Other surgical procedures as the cause of abnormal reaction of the patient, or of later complication, without mention of misadventure at the time of the procedure | CPT/HCPCS: 96365; J0878 ==

== ENCOUNTER 2021-06-11 01:40 | Day surgery (SDC) | payer OTHER | END 2021-06-11 08:41 | disposition home or self-care (01) | LOC: ATC 01:40 | DX: T81.49XA Infection following a procedure, other surgical site, initial encounter (principal); B99.9 Unspecified infectious disease; F17.210 Nicotine dependence, cigarettes, uncomplicated; Y83.8 Other surgical procedures as the cause of abnormal reaction of the patient, or of later complication, without mention of misadventure at the time of the procedure | CPT/HCPCS: 96365; J0878 ==

== ENCOUNTER 2021-06-12 01:58 | Day surgery (SDC) | payer OTHER | END 2021-06-12 09:07 | disposition home or self-care (01) | LOC: ATC 01:58 | DX: T81.49XA Infection following a procedure, other surgical site, initial encounter (principal); B99.9 Unspecified infectious disease; F17.210 Nicotine dependence, cigarettes, uncomplicated; Y83.8 Other surgical procedures as the cause of abnormal reaction of the patient, or of later complication, without mention of misadventure at the time of the procedure | CPT/HCPCS: 96365; J0878 ==

== ENCOUNTER 2021-06-13 07:18 | Day surgery (SDC) | payer OTHER | END 2021-06-13 08:22 | disposition home or self-care (01) | LOC: ATC 07:18 | DX: T81.49XA Infection following a procedure, other surgical site, initial encounter (principal); B99.9 Unspecified infectious disease; F17.210 Nicotine dependence, cigarettes, uncomplicated; Y83.8 Other surgical procedures as the cause of abnormal reaction of the patient, or of later complication, without mention of misadventure at the time of the procedure | CPT/HCPCS: 96365; J0878 ==

== ENCOUNTER 2021-06-14 01:05 | Day surgery (SDC) | payer OTHER | END 2021-06-14 08:12 | disposition home or self-care (01) | LOC: ATC 01:05 | DX: T81.49XA Infection following a procedure, other surgical site, initial encounter (principal); B99.9 Unspecified infectious disease; F17.210 Nicotine dependence, cigarettes, uncomplicated; Y83.8 Other surgical procedures as the cause of abnormal reaction of the patient, or of later complication, without mention of misadventure at the time of the procedure | CPT/HCPCS: 96365; J0878 ==

== ENCOUNTER 2021-06-15 07:30 | Day surgery (SDC) | payer OTHER | END 2021-06-15 08:20 | disposition home or self-care (01) | LOC: ATC 07:30 | DX: T81.49XA Infection following a procedure, other surgical site, initial encounter (principal); M00.9 Pyogenic arthritis, unspecified; F17.210 Nicotine dependence, cigarettes, uncomplicated; Y83.8 Other surgical procedures as the cause of abnormal reaction of the patient, or of later complication, without mention of misadventure at the time of the procedure | CPT/HCPCS: 96365; J0878 ==

== ENCOUNTER 2021-06-16 07:25 | Day surgery (SDC) | payer OTHER | END 2021-06-16 08:00 | disposition home or self-care (01) | LOC: ATC 07:25 | DX: T81.42XD Infection following a procedure, deep incisional surgical site, subsequent encounter (principal); M00.9 Pyogenic arthritis, unspecified; F17.210 Nicotine dependence, cigarettes, uncomplicated | CPT/HCPCS: 96365; J0878 ==

== ENCOUNTER 2021-06-17 01:51 | Day surgery (SDC) | payer OTHER | END 2021-06-17 08:15 | disposition home or self-care (01) | LOC: ATC 01:51 | DX: T81.49XA Infection following a procedure, other surgical site, initial encounter (principal); M00.9 Pyogenic arthritis, unspecified; F17.210 Nicotine dependence, cigarettes, uncomplicated; Y83.8 Other surgical procedures as the cause of abnormal reaction of the patient, or of later complication, without mention of misadventure at the time of the procedure | CPT/HCPCS: 96365; J0878 ==

== ENCOUNTER 2021-06-18 02:28 | Day surgery (SDC) | payer OTHER | END 2021-06-18 08:15 | disposition home or self-care (01) | LOC: ATC 02:28 | DX: T81.49XA Infection following a procedure, other surgical site, initial encounter (principal); M00.9 Pyogenic arthritis, unspecified; F17.210 Nicotine dependence, cigarettes, uncomplicated | CPT/HCPCS: 96365; J0878 ==

== ENCOUNTER 2021-06-19 02:13 | Day surgery (SDC) | payer OTHER | END 2021-06-19 08:15 | disposition home or self-care (01) | LOC: ATC 02:13 | DX: T81.42XD Infection following a procedure, deep incisional surgical site, subsequent encounter (principal); F17.210 Nicotine dependence, cigarettes, uncomplicated | CPT/HCPCS: 96365; J0878 ==

== ENCOUNTER 2021-06-20 04:03 | Day surgery (SDC) | payer OTHER | END 2021-06-20 08:12 | disposition home or self-care (01) | LOC: ATC 04:03 | DX: T81.49XA Infection following a procedure, other surgical site, initial encounter (principal); B99.9 Unspecified infectious disease; F17.210 Nicotine dependence, cigarettes, uncomplicated; Y83.8 Other surgical procedures as the cause of abnormal reaction of the patient, or of later complication, without mention of misadventure at the time of the procedure | CPT/HCPCS: 96365; J0878 ==